=== PATIENT | male | born 1990 | race Caucasian/White ===

== ENCOUNTER 2019-10-03 13:28 | Emergency (ER) | payer SELFPAY ==
[~2019-10-03] VITALS: Ht 175.3 cm; Wt 82.6 kg
[2019-10-03 13:30] VITALS: BP 144/87
--- NOTE | 2019-10-03 13:35 | NUR ---
PT AMBULATED TO CHAIR
[2019-10-03] MEDS ORDERED: IBUPROFEN 600 MG TAB PO ONE (13:45)
--- NOTE | 2019-10-03 13:49 | NUR ---
PATIENT PRESENTS TO ED WITH DRY COUGH, FEVER AND CHILLS FOR 3 DAYS. PT EXPERIENCING GEN BODY ACHE AND THROAT PAIN 4/10 WHEN COUGHING. PT DENIES COLDS, , DIARRHEA AND VOMITING. PT TOOK OTC MEDS WHICH PROVIDED MILD RELIEF. CBS ON ALL LUNG KRISHNA, NO LABORED BREATHING NOTED. VSS; PATIENT POSITIONED FOR COMFORT; HOB ELEVATED; BEDRAILS UP X2; BED DOWN. ER MD MADE AWARE OF PT STATUS. NO PMH. NO MEDS. NO ALLERGIES.
[2019-10-03 14:20] VITALS: BP 144/87
--- NOTE | 2019-10-03 14:21 | NUR ---
Patient discharged with v/s stable. Written and verbal after care instructions given and explained. Patient alert, oriented and verbalized understanding of instructions. Ambulatory with steady gait. All questions addressed prior to discharge. ID band removed. Patient advised to follow up with PMD. Rx of ACETAMINOPHEN, PROMETHAZINE, IBUPROFEN given. Patient educated on indication of medication including possible reaction and side effects. Opportunity to ask questions provided and answered.
== END 2019-10-03 14:21 | disposition home or self-care (01) ==
LOC: MED 13:28
DX: J06.9 Acute upper respiratory infection, unspecified (principal)
CPT/HCPCS: 87804; 99283